=== PATIENT | male | born 1935 | race Caucasian/White ===

== ENCOUNTER 2023-01-14 15:50 | Emergency (ER) | payer MEDICARE, SELFPAY ==
--- NOTE | ~2023-01-14 | XR_ITS ---
EXAMINATION: XR chest 1V DATE: 01/14/2023 20:20 INDICATION: Chest pain. TECHNIQUE: A single frontal view of the chest was obtained. COMPARISON: None. FINDINGS: There is no pneumonia, pleural effusion, or pneumothorax. Cardiomegaly is noted. There is a left chest wall pacer with leads in the right atrium and right ventricle. Median sternotomy wires ar e noted. IMPRESSION: 1. Cardiomegaly. Reviewed, dictated and finalized at location E. IMPRESSION: 1. Cardiomegaly.
--- NOTE | ~2023-01-14 | CT_ITS ---
EXAMINATION: CT brain wo con DATE: 01/14/2023 20:16 INDICATION: Vision change. TECHNIQUE: Computed tomography (CT) of the head was performed without intravenous contrast. The mA wa s adjusted according to patient size. Iterative reconstruction technique was employed. The dose-lengt h product was 681.00 mGy-cm. COMPARISON: None FINDINGS: There are scattered areas of low attenuation in the cerebral white matter, which is within normal limits for the patient's age. There is no intracranial hemorrhage, acute infarction, or abnorm al intracranial mass lesion. The ventricles are normal in size. There are likely changes of ocular le ns replacement surgeries. There is mild mucosal thickening in the ethmoid sinuses. The mastoid air ce lls are normal. IMPRESSION: 1. Normal aging brain. Reviewed, dictated and finalized at location E. IMPRESSION: 1. Normal aging brain.
[2023-01-14 16:03] VITALS: PULSE 60; RESP 16; TEMP 36.9; O2SAT 96
[2023-01-14 18:02] VITALS: BP 188/95; PULSE 59; RESP 18; O2SAT 98
--- NOTE | 2023-01-14 18:26 | ED.EYEPROB ---
HPI - Eye Problem General Chief complaint: Eye Problems <Mary Clarke PA-C - Last Filed: 01/14/23 18:35> Stated complaint: CARRILLO, R eye problems <Mary Clarke PA-C - Last Filed: 01/14/23 18:35> Time Seen by Provider: 01/14/23 19:03 <Mary Clarke PA-C - Last Filed: 01/14/23 18:35> History of Present Illness HPI Narrative: 87-year-old male with a history of unknown arrhythmia, s/p pacemaker placement, CVA, DM, hypertension, s/p CABG, glaucoma, s/p right-sided endarterectomy in May 2022 reports for evaluation for intermittent headaches and vision changes for the past 4 days. Patient states 4 days ago, his primary care increased his metoprolol from 1 pill twice daily to 2 pills twice daily. He states his blood pressure medications were increased after having elevated readings of 210 systolic as well as waking up with a roaring sound in his both ears the night before. He stated since then, he has had an unsteady gait, intermittent headaches, blurred vision in his eyes, and an unsteady gait. He reports bright purple spots in his R eye when he goes from a a dark room to a bright room. He denies head injury or trauma, syncope, chest pain or shortness of breath, palpitations, abdominal pain, nausea, vomiting, diarrhea. Most of his doctors are at [facility] including his check services clerk. Auto Body Detailer is Dr. Nguyen. <Mary Clarke PA-C - Last Filed: 01/14/23 18:35> Related Data Home medications: Home Medications Medication Instructions Recorded Confirmed acetaminophen 500 mg capsule 500 mg PO Q6H PRN Pain, Mild 11/08/21 amlodipine 5 mg tablet 5 mg PO DAILY 11/08/21 aspirin 325 mg tablet 325 mg PO DAILY 11/08/21 atorvastatin 40 mg tablet 40 mg PO DAILY 11/08/21 cholecalciferol (vitamin D3) 25 25 mcg PO DAILY 11/08/21 mcg (1,000 unit) capsule coenzyme Q10 200 mg capsule (Co 200 mg PO DAILY 11/08/21 Q-10) dorzolamide 22.3 mg-timolol 6.8 1 drp EACH EYE BID 11/08/21 mg/mL eye drops dulaglutide 4.5 mg/0.5 mL 4.5 mg subcut WEEKLY 11/08/21 subcutaneous pen injector (Nasimaity) ezetimibe 10 mg tablet 10 mg PO DAILY 11/08/21 finasteride 5 mg tablet 5 mg PO DAILY 11/08/21 folic acid 800 mcg tablet 0.8 mg PO DAILY 11/08/21 glucagon 3 mg/actuation nasal 3 mg intranasal ONCE 11/08/21 spray (Baqsimi) glucosamine 500 cap PO 11/08/21 ua-[id number]-rezhaapw comp 400 mg-D3 667 unit-C-Mn cap insulin degludec 200 unit/mL (3 20 unit subcut DAILY 11/08/21 mL) subcutaneous pen (Tresiba FlexTouch U-200 insulin) insulin regular human 100 unit/mL 1 sliding scale dose subcut 11/08/21 (3 mL) subcutaneous pen (Novolin R USEASDIRECTD FlexPen) losartan 50 mg tablet 50 mg PO DAILY 11/08/21 metformin 500 mg tablet 500 mg PO BID 11/08/21 metoprolol tartrate 25 mg tablet 25 mg PO BID 11/08/21 multivitamin 1 tablet PO DAILY 11/08/21 nitroglycerin 0.4 mg sublingual 0.4 mg sublingual Q5M PRN Chest 11/08/21 tablet Pain omega-3 fatty acids 1,000 mg 1,000 mg PO DAILY 11/08/21 capsule pen needle, diabetic 32 gauge x 11/08/21 5/32 (AboutTime Pen Needle) tamsulosin 0.4 mg capsule 0.4 mg PO DAILY 11/08/21 turmeric root extract 500 mg 500 mg PO DAILY 11/08/21 capsule ropinirole 0.25 mg tablet mg 01/14/23 <Mary Clarke PA-C - Last Filed: 01/14/23 18:35> Allergies/adverse reactions: Allergies Allergy/AdvReac Type Severity Reaction Status Date / Time No Known Allergies Allergy Unknown Verified 01/14/23 18:49 NKDA Allergy Mild Unknown Uncoded 11/08/21 11:10 <Mary Clarke PA-C - Last Filed: 01/14/23 18:35> Review of Systems Review of Systems: CONSTITUTIONAL: Denies fever, chills EYES: See HPI ENT: Denies rhinorrhea, congestion, sore throat, or otalgia. CARDIOVASCULAR: Denies chest pain, palpitations, or edema. RESPIRATORY: Denies cough or dyspnea. GASTROINTESTINAL: Denies abdominal pain, nausea, vomiting, or diarrhea. GENITOURINARY: D
[2023-01-14 18:47] VITALS: BP 199/101; PULSE 59; RESP 20; O2SAT 98
[2023-01-14 19:26] VITALS: BP 211/94; PULSE 60; RESP 15; O2SAT 97
--- NOTE | 2023-01-14 19:49 | ECG_ITS ---
Measurements Intervals [place] Rate: 60 P: 20 PA: 194 QRS: -48 QRSD: 170 T: 46 QT: 468 QTc: 469 Interpretive Statements ELECTRONIC VENTRICULAR PACEMAKER ABNORMAL RHYTHM ECG NO PREVIOUS ECG AVAILABLE FOR COMPARISON Electronically Signed On 01-15-2023 14:57:00 CDT by Kati Mchugh M.D.
[2023-01-14 20:10] LABS: Basophils Percent Auto 0.3 % (0.2-1.2); Eosinophils Absolute Auto 0.1 K/mm3 (0-0.3); Eosinophils Percent Auto 1.7 % (0-4.4); Hematocrit 46.4 % (42.0-52.0); Hemoglobin 15.1 g/dL (14.0-18.0); Immature Granulocyte Absolute 0.02 K/mm3 (0.00-0.031); Immature Granulocyte Percent A 0.3 % (0-0.5); Lymphocytes Absolute Auto 2.68 K/mm3 (0.9-3.2); Lymphocytes Percent Auto 37.3 % (18.3-44.2); Mean Corpuscular HGB Conc 32.5 g/dl (32-36); Mean Corpuscular Hemoglobin 30.3 pg (26-34); Mean Platelet Volume 10.1 fl (7.4-10.4); Monocytes Absolute Auto 0.6 K/mm3 (0.1-0.6); Monocytes Percent Auto 8.6 % (2.6-8.5); Neutrophils Absolute Auto 3.7 K/mm3 (1.3-6.7); Neutrophils Percent Auto 51.8 % (45.5-73.1); Platelet Count Result 205 k/mm3 (150-375); Red Blood Count 4.99 M/mm3 (4.6-6.20); Red Cell Distribution Width 13.2 % (11.5-14.5); White Blood Count 7.2 K/mm3 (4.5-10.0)
[2023-01-14 20:26] LABS: Alanine Aminotransferase 27 U/L (6-50); Albumin Level 4.3 g/dL (3.5-5.1); Alkaline Phosphatase 51 U/L (38-126); Anion Gap 6 mmol/L (8-16); Aspartate Amino Transferase 33 U/L (17-59); Bilirubin,Total 1.3 mg/dL (0.2-1.3); Blood Urea Nitrogen 17 mg/dL (9-20); Calcium 9.3 mg/dL (8.4-10.2); Carbon Dioxide 31 mmol/L (22-30); Chloride 100 mmol/L (98-107); Estimated CRCL calculation 66 ml/min; Estimated Glomerular Filt Rate > 60; Glucose 153 mg/dL (65-110); Potassium 3.4 mmol/L (3.4-5.0); Sodium 137 mmol/L (137-145)
[2023-01-14 20:34] LABS: NT Pro B Type Natriuretic Pept 530 pg/mL (19.9-100); Troponin I 0.016 ng/mL (0.000-0.034)
[2023-01-14] MEDS: hydrALAZINE HCL 20 MG/ML VIAL 10 MG IV PUSH (20:51)
[2023-01-14 21:07] VITALS: BP 159/75; PULSE 60; RESP 16; O2SAT 96
[2023-01-14 21:32] VITALS: BP 162/91; PULSE 62; RESP 14; O2SAT 97
[2023-01-14] MEDS: ASPIRIN 81 MG CHEWABLE TABLET 324 MG PO (22:26)
--- NOTE | 2023-01-14 22:46 | PC.NURSE ---
Report called to DENIZ Zelaya at [facility]. Patient to [address] bed [address]. Will call when bed is clean.
[2023-01-14 23:53] LABS: Troponin I 0.017 ng/mL (0.000-0.034)
[2023-01-15] MEDS: INSULIN GLARGINE (*BKC) 100 UNITS/ML 6 UNITS SUB-Q (00:50)
[2023-01-15] MEDS: hydrALAZINE HCL 20 MG/ML VIAL 10 MG IV PUSH (00:50)
[2023-01-15 01:01] VITALS: BP 163/67; PULSE 63; RESP 18; O2SAT 95
[2023-01-15 01:03] LABS: Glucose Point of Care 150 mg/dl (65-105)
== END 2023-01-15 01:30 | disposition short-term general hospital (02) ==
PROVIDERS: Emergency Provider Emergency Medicine; PCP Internal Medicine
DX: I63.9 Cerebral infarction, unspecified (principal); I16.0 Hypertensive urgency; I11.9 Hypertensive heart disease without heart failure; H49.22 Sixth [abducent] nerve palsy, left eye; I25.2 Old myocardial infarction; E11.39 Type 2 diabetes mellitus with other diabetic ophthalmic complication; H42 Glaucoma in diseases classified elsewhere; Z95.1 Presence of aortocoronary bypass graft; Z95.0 Presence of cardiac pacemaker; Z86.73 Personal history of transient ischemic attack (TIA), and cerebral infarction without residual deficits; Z79.4 Long term (current) use of insulin; Z79.85 Long-term (current) use of injectable non-insulin antidiabetic drugs; Z79.84 Long term (current) use of oral hypoglycemic drugs
CPT/HCPCS: 36415; 70450; 71045; 80053; 82948; 83880; 84484; 85025; 93005; 96374; 96376; 99285; A9270; J0360; J1815

== ENCOUNTER 2023-03-12 08:02 | Outpatient (CLI) | payer MEDICARE, SELFPAY ==
--- NOTE | ~2023-03-12 | US_ITS ---
. EXAMINATION: US retroperitoneal duplex ltd DATE: 03/12/2023 09:10 INDICATION: Hypertension associated with diabetes. TECHNIQUE: Multiple grayscale, color Doppler, and pulsed Doppler images of the kidneys and renal claude anastasia were obtained. COMPARISON: None. FINDINGS: The aorta peak systolic velocity is 71 cm/s. The right renal artery peak systolic velocity is 51 cm/s in the proximal segment, 66 cm/s in the mid segment, and 67 cm/s in the distal segment. The left maxime al artery peak systolic velocity is 54 cm/s in the proximal segment, 48 cm/s in the mid segment, and 53 cm/s in the distal segment. IMPRESSION: 1. No Doppler evidence of renal artery stenosis. Reviewed, dictated and finalized at location A. FIELD LAB[employer]ER
== END 2023-03-12 08:03 | disposition home or self-care (01) ==
PROVIDERS: PCP Internal Medicine; Visit Provider Internal Medicine Cardiovascular Disease
DX: I15.2 Hypertension secondary to endocrine disorders (principal); E11.59 Type 2 diabetes mellitus with other circulatory complications; I10 Essential (primary) hypertension
CPT/HCPCS: 93976